=== PATIENT | female | born 1990 | race Two or more races ===

== ENCOUNTER 2021-04-21 15:51 | Emergency (ER) | payer OTHER ==
[~2021-04-21] VITALS: Ht 175.3 cm; Wt 124.7 kg
[2021-04-21] MEDS ORDERED: SYNTHROID75 MCG (16:17)
[2021-04-21] MEDS ORDERED: CIPRO500 MG PO (21:44)
== END 2021-04-21 22:19 | disposition home or self-care (01) ==
LOC: ER 15:51
DX: B34.9 Viral infection, unspecified (principal); N39.0 Urinary tract infection, site not specified; R42 Dizziness and giddiness

== ENCOUNTER 2021-04-23 21:00 | Emergency (ER) | payer OTHER ==
[~2021-04-23] VITALS: Ht 170.2 cm; Wt 138.8 kg
[~2021-04-23 21:00] MED LIST: CIPRO500 MG PO; SYNTHROID75 MCG
[2021-04-23] MEDS ORDERED: CIPRO500 MG PO (21:23)
[2021-04-23] MEDS ORDERED: SYNTHROID50 MCG PO (21:23)
[2021-04-23] MEDS ORDERED: ACETAMINOPHEN650 M2 PO (23:51)
[2021-04-23] MEDS ORDERED: NORFLEX100MG PO (23:51)
[2021-04-23] MEDS ORDERED: PYRIDIUM200 MG PO (23:51)
== END 2021-04-24 00:01 | disposition home or self-care (01) ==
LOC: ER 21:00
DX: S29.011A Strain of muscle and tendon of front wall of thorax, initial encounter (principal); N39.0 Urinary tract infection, site not specified; X58.XXXA Exposure to other specified factors, initial encounter; Y93.89 Activity, other specified; Y92.89 Other specified places as the place of occurrence of the external cause; Y99.8 Other external cause status

== ENCOUNTER 2021-05-03 18:02 | Emergency (ER) | payer OTHER ==
[~2021-05-03] VITALS: Ht 170.2 cm; Wt 136.1 kg
[~2021-05-03 18:02] MED LIST changes: +ACETAMINOPHEN650 M2 PO; +NORFLEX100MG PO; +PYRIDIUM200 MG PO; +SYNTHROID50 MCG PO
== END 2021-05-03 21:11 | disposition home or self-care (01) ==
LOC: ER 18:02
DX: R53.81 Other malaise (principal); Z03.818 Encounter for observation for suspected exposure to other biological agents ruled out; R50.9 Fever, unspecified; R06.02 Shortness of breath; R07.89 Other chest pain; M54.89 Other dorsalgia; R10.12 Left upper quadrant pain